=== PATIENT | male | born 1975 | race Two or more races ===

== ENCOUNTER 2017-07-14 16:18 | Emergency (ER) | payer MEDICAID ==
[~2017-07-14] VITALS: Ht 167.6 cm; Wt 77.1 kg
--- NOTE | 2017-07-14 16:30 | NUR ---
BIB FROM HOME DT CHEST TIGHTNESS- PER PT IT STARTED AFTER CRYSTAL METH USE. AT BS FOR EVAL. VSS. NOTED ANXIOUS. SAFETY AND COMFORT MEASURES PROVIDED. WILL MONITOR.
--- NOTE | 2017-07-14 16:50 | NUR ---
PT MEDICATED ORDERED.
[2017-07-14] MEDS ORDERED: LORAZEPAM 1 MG TABLET ONE (16:58)
[2017-07-14] MEDS ORDERED: LORAZEPAM 1 MG TABLET PO ONE (17:00)
--- NOTE | 2017-07-14 17:10 | NUR ---
Patient discharged to waiting room in stable condition. Advised pt not to drive. Offered to call cab but per pt he will cqall ubmya himself. Written and verbal after care instructions given. Patient verbalizes understanding of instruction. All questions answered.
[2017-07-14 17:18] VITALS: BP 140/80
== END 2017-07-14 17:19 | disposition home or self-care (01) ==
LOC: ER 16:21
DX: F41.9 Anxiety disorder, unspecified (principal); F15.10 Other stimulant abuse, uncomplicated; F17.200 Nicotine dependence, unspecified, uncomplicated; Z88.8 Allergy status to other drugs, medicaments and biological substances
CPT/HCPCS: 99284; Z7610

== ENCOUNTER 2019-05-06 13:47 | Emergency (ER) | payer MEDICAID, OTHER ==
[~2019-05-06] VITALS: Ht 167.6 cm; Wt 72.6 kg
--- NOTE | 2019-05-06 13:47 | NUR ---
BIB SELF C/O ANXIETY WORSENING TODAY, PT IS AAOX4, NOT IN RESPIRATORY DISTRESS, NOTED ELEVATED HEART RATE, HOOKED TO INTERACTIVE DESIGNER, KEPT RESTED AND COMFORTABLE, WILL CONTINUE TO MONITOR.
--- NOTE | 2019-05-06 14:10 | NUR ---
SEEN AND EXAMIJNED BY CLAU JAMES
[2019-05-06] MEDS ORDERED: LORAZEPAM INJ 2 MG/ML VIAL ONE ×2 (14:16→16:07)
--- NOTE | 2019-05-06 14:28 | NUR ---
IV LINE ESTABLISHED.
[2019-05-06] MEDS ORDERED: IV NS 0.9% 1,000 ML BAG IV ONE ×2 (14:30→18:00)
[2019-05-06] MEDS ORDERED: LORAZEPAM INJ 2 MG/ML VIAL IV ONE (14:30)
[2019-05-06] MEDS ORDERED: hydrALAZINE HCL IV 20 MG VIAL ONE (15:30)
[2019-05-06] MEDS ORDERED: hydrALAZINE HCL IV 20 MG VIAL IV ONE (15:30)
[2019-05-06] MEDS ORDERED: LORAZEPAM 1 MG TABLET PO ONE (16:30)
--- NOTE | 2019-05-06 16:55 | NUR ---
Akash phillip in [facility] - 05/06/19 at 1743 by ETHAN REPORT GIVEN TO MAGDALENA GARCIA FOR JAVY.
--- NOTE | 2019-05-06 16:55 | NUR ---
REPORT GIVEN TO MAGDALENA GARCIA FOR JAVY.
[2019-05-06] MEDS ORDERED: CEFTRIAXONE 500 MG VIAL ONE (17:48)
[2019-05-06] MEDS ORDERED: AZITHROMYCIN 250 MG TABLET ONE (17:49)
[2019-05-06] MEDS ORDERED: LIDOCAINE /MPF 1% VIAL 5 ML VIAL ONE (17:49)
[2019-05-06] MEDS ORDERED: CEFTRIAXONE 500 MG VIAL IM ONE (18:00)
[2019-05-06] MEDS ORDERED: AZITHROMYCIN 250 MG TABLET PO ONE (18:00)
[2019-05-06 19:06] VITALS: BP 146/98
--- NOTE | 2019-05-06 19:06 | NUR ---
Patient discharged to home in stable condition. Written and verbal after care instructions given. Patient verbalizes understanding of instruction.
--- NOTE | 2019-05-06 19:06 | NUR ---
IV removed. Catheter intact and site benign. Pressure and 4x4 applied to site. No bleeding noted.
== END 2019-05-06 19:09 | disposition home or self-care (01) ==
LOC: ER 13:47
DX: F41.9 Anxiety disorder, unspecified (principal); F15.10 Other stimulant abuse, uncomplicated; Z20.2 Contact with and (suspected) exposure to infections with a predominantly sexual mode of transmission; Z88.8 Allergy status to other drugs, medicaments and biological substances; Z60.2 Problems related to living alone
CPT/HCPCS: 93005; 96372; 96374; 96375; 99284; J0360; J0696; J2060 ×2; J3490; J7030 ×2

== ENCOUNTER 2023-07-21 18:21 | Inpatient (IN) | payer OTHER ==
[~2023-07-21] VITALS: Ht 167.6 cm; Wt 87.5 kg
[2023-07-21] MEDS ORDERED: ONDANSETRON HCL/PF 4 MG/2 ML VIAL IVP ONE (19:00)
[2023-07-21] MEDS ORDERED: MORPHINE SULFATE INJ 2 MG/ML DISP.SYRIN IV ONE (19:00)
[2023-07-21] MEDS ORDERED: PANTOPRAZOLE 40 MG VIAL IV ONE (19:00)
[2023-07-21 19:03] LABS: BASOPHILS # (AUTO) 0.1 K/uL (0.0-0.2); BASOPHILS % (AUTO) 0.7 % (0.0-2.0); EOSINOPHILS # (AUTO) 0.1 K/uL (0.0-0.7); EOSINOPHILS % (AUTO) 1.6 % (0.0-6.0); HEMATOCRIT 43 % (39-51); HEMOGLOBIN 14.8 g/dL (13.5-17.5); LYMPHOCYTES # (AUTO) 1.8 K/uL (0.8-4.8); LYMPHOCYTES % (AUTO) 22.6 % (20.0-44.0); MEAN CORPUSCULAR HEMOGLOBIN 30 PG (26.0-33.0); MEAN CORPUSCULAR HGB CONC 34 g/dl (31.0-36.0); MEAN CORPUSCULAR VOLUME 89 fL (80-96); MONOCYTES # (AUTO) 0.5 K/uL (0.1-1.30); MONOCYTES % (AUTO) 6.6 % (2.0-12.0); NEUTROPHILS # (AUTO) 5.6 K/uL (1.8-8.9); NEUTROPHILS % (AUTO) 68.5 % (43.0-81.0); PLATELET COUNT (AUTO) 243 K/uL (150-450); RED BLOOD CELL COUNT(AUTO) 4.88 MIL/uL (4.5-6.0); RED CELL DISTRIBUTION WIDTH 13.7 % (11.5-15.0); WHITE BLOOD COUNT (AUTO) 8.1 K/uL (4.3-11.0)
[2023-07-21] MEDS ORDERED: PANTOPRAZOLE 40 MG VIAL ONE (19:03)
[2023-07-21 19:11] LABS: CALCIUM, SERUM 9.4 mg/dL (8.5-10.1); CARBON DIOXIDE 27 mmol/L (21-32); CHLORIDE 101 mmol/L (98-107); CREATININE 1.1 mg/dL (0.6-1.3); GLUCOSE 101 mg/dL (74-106); POTASSIUM 3.9 mmol/L (3.5-5.1); SODIUM SERUM 137 mmol/L (136-145); UREA NITROGEN, BLOOD 11 mg/dL (7-18)
[2023-07-21 19:17] LABS: ALBUMIN 3.9 g/dL (3.4-5.0); BILIRUBIN,TOTAL 0.3 mg/dL (0.2-1.0); TOTAL PROTEIN, SERUM 7.5 g/dL (6.4-8.2)
[2023-07-21] MEDS ORDERED: CLOPIDOGREL BISULFATE 75 MG TABLET PO ONE (19:30)
[2023-07-21] MEDS ORDERED: HEPARIN SODIUM, PORCINE 5000 UNITS/1 ML VIAL IV ONE (19:30)
[2023-07-21] MEDS ORDERED: CHOL100043 PO (19:37)
[2023-07-21] MEDS ORDERED: ALPR0.255 PO (19:37)
[2023-07-21] MEDS ORDERED: IBUP-1957 PO (19:37)
[2023-07-21] MEDS ORDERED: LOSA50TA39 PO (19:37)
[2023-07-21] MEDS ORDERED: ACYC-108 PO (19:37)
[2023-07-21] MEDS ORDERED: FLUT16SP16 NAS (19:37)
[2023-07-21] MEDS ORDERED: ASPI-1169 PO (19:37)
[2023-07-21] MEDS ORDERED: CLOPIDOGREL BISULFATE 75 MG TABLET ONE (19:37)
[2023-07-21] MEDS ORDERED: CETI10TA14 PO (19:37)
[2023-07-21] MEDS ORDERED: OMEP40CA21 PO (19:37)
[2023-07-21] MEDS ORDERED: BUPR-96 PO (19:37)
[2023-07-21] MEDS ORDERED: METF-440 PO (19:37)
[2023-07-21] MEDS ORDERED: ENOXAPARIN SODIUM 80 MG/0.8 ML DISP.SYRIN SQ ONE ×2 (19:40→20:00)
[2023-07-21 19:47] LABS: APPEARANCE,URINE CLEAR (CLEAR); BILIRUBIN,URINE NEGATIVE (NEGATIVE); BLOOD, URINE TRACE-INTA Ery/uL (NEGATIVE); COLOR,URINE YELLOW (YELLOW); KETONES,URINE NEGATIVE (NEGATIVE); LEUKOCYTE ESTERASE ,URINE TRACE (NEGATIVE); NITRITE, URINE NEGATIVE (NEGATIVE); PROTEIN,URINE NEGATIVE (NEGATIVE); UGLUCOSE NEGATIVE (NEGATIVE); UROBILINOGEN,URINE 0.2 EU/dL (0.2)
[2023-07-21 19:57] LABS: AMPHETAMINE, URINE NEGATIVE (NEGATIVE); BARBITURATE, URINE NEGATIVE (NEGATIVE); CANNABINOID, URINE NEGATIVE (NEGATIVE); COCCAINE, URINE NEGATIVE (NEGATIVE); OPIATE, URINE NEGATIVE (NEGATIVE); PHENCYCLIDINE SCREEN,URINE NEGATIVE (NEGATIVE)
[2023-07-21 20:16] LABS: RBC,URINE 0-2 /HPF (0-2); WBC,URINE 0-2 /HPF (0-3)
[2023-07-21 20:17] LABS: INR 0.99 (0.91-1.10); PARTIAL THROMBOPLASTIN TIME 29.6 SEC (24.3-34.3); PROTHROMBIN TIME 10.5 SECS (9.2-11.1)
[2023-07-21 20:17] LABS: ADD URINE CULTURE NO; BACTERIA,URINE Rare /HPF (None Seen); SQUAMOUS EPITHELIAL CELL,UR Few /HPF (None Seen)
[2023-07-21] MEDS: ASPIRIN 81 MG TAB.CHEW PO SCH (20:30)
[2023-07-21] MEDS ORDERED: METOPROLOL TARTRATE 25 MG TABLET PO SCH (21:00)
[2023-07-21 21:13] LABS: BENZODIAZEPINE, URINE NEGATIVE (NEGATIVE)
[2023-07-21] MEDS ORDERED: ONDANSETRON HCL/PF 4 MG/2 ML VIAL IVP PRN (23:00)
[2023-07-21] MEDS ORDERED: MAG HYDROX/AL HYDROX/SIMETH 30 ML UDC PO PRN (23:00)
[2023-07-22] VITALS: BP 134/84; TEMP 98.1; O2SAT 96
[2023-07-22] MEDS: MORPHINE SULFATE INJ 2 MG/ML DISP.SYRIN IV PRN ×2 (01:10→22:01)
[2023-07-22 04:00] VITALS: BP 119/82; TEMP 97.9; O2SAT 97
[2023-07-22] MEDS: ACETAMINOPHEN 325 MG TABLET PO PRN (04:55)
[2023-07-22 06:24] LABS: BASOPHILS % (AUTO) 0.4 % (0.0-2.0); EOSINOPHILS # (AUTO) 0.1 K/uL (0.0-0.7); EOSINOPHILS % (AUTO) 1.3 % (0.0-6.0); HEMATOCRIT 43 % (39-51); HEMOGLOBIN 14.6 g/dL (13.5-17.5); LYMPHOCYTES # (AUTO) 2.2 K/uL (0.8-4.8); LYMPHOCYTES % (AUTO) 23.8 % (20.0-44.0); MEAN CORPUSCULAR HEMOGLOBIN 30 PG (26.0-33.0); MEAN CORPUSCULAR HGB CONC 34 g/dl (31.0-36.0); MEAN CORPUSCULAR VOLUME 89 fL (80-96); MONOCYTES # (AUTO) 0.7 K/uL (0.1-1.30); MONOCYTES % (AUTO) 7.7 % (2.0-12.0); NEUTROPHILS # (AUTO) 6.2 K/uL (1.8-8.9); NEUTROPHILS % (AUTO) 66.8 % (43.0-81.0); PLATELET COUNT (AUTO) 234 K/uL (150-450); RED BLOOD CELL COUNT(AUTO) 4.84 MIL/uL (4.5-6.0); RED CELL DISTRIBUTION WIDTH 13.3 % (11.5-15.0); WHITE BLOOD COUNT (AUTO) 9.3 K/uL (4.3-11.0)
[2023-07-22 07:03] LABS: CALCIUM, SERUM 8.9 mg/dL (8.5-10.1); CREATININE 1.1 mg/dL (0.6-1.3); MAGNESIUM 1.8 mg/dL (1.8-2.4); PHOSPHORUS 3.2 mg/dL (2.5-4.9); POTASSIUM 3.8 mmol/L (3.5-5.1)
[2023-07-22 07:30] VITALS: BP 111/76; TEMP 98.8; O2SAT 97
[2023-07-22] MEDS: PANTOPRAZOLE 40 MG TABLET.DR PO SCH (07:52)
[2023-07-22] MEDS: ASPIRIN 81 MG TAB.CHEW PO SCH (09:24)
[2023-07-22] MEDS: METOPROLOL TARTRATE 25 MG TABLET PO SCH ×3 (09:26→17:34)
[2023-07-22] MEDS: ENOXAPARIN SODIUM 80 MG/0.8 ML DISP.SYRIN SQ SCH ×2 (09:27→21:42)
[2023-07-22 16:00] VITALS: BP 105/78; TEMP 99.1; O2SAT 99
[2023-07-22 20:00] VITALS: BP 106/73; TEMP 99.3; O2SAT 95
[2023-07-22] MEDS: ATORVASTATIN 10 MG TABLET PO SCH (21:32)
[2023-07-23] VITALS: BP_SYST 100; BP_SYST 99; BP_DIAS 71; BP_DIAS 72; TEMP 98.9; TEMP 99; O2SAT 97
[2023-07-23] MEDS: METOPROLOL TARTRATE 25 MG TABLET PO SCH ×4 (05:13→17:17)
[2023-07-23 05:58] LABS: BASOPHILS % (AUTO) 0.3 % (0.0-2.0); EOSINOPHILS # (AUTO) 0.1 K/uL (0.0-0.7); EOSINOPHILS % (AUTO) 1.3 % (0.0-6.0); HEMATOCRIT 42 % (39-51); HEMOGLOBIN 14.5 g/dL (13.5-17.5); LYMPHOCYTES # (AUTO) 2.5 K/uL (0.8-4.8); LYMPHOCYTES % (AUTO) 29.6 % (20.0-44.0); MEAN CORPUSCULAR HEMOGLOBIN 30 PG (26.0-33.0); MEAN CORPUSCULAR HGB CONC 34 g/dl (31.0-36.0); MEAN CORPUSCULAR VOLUME 89 fL (80-96); MONOCYTES # (AUTO) 0.8 K/uL (0.1-1.30); MONOCYTES % (AUTO) 9.2 % (2.0-12.0); NEUTROPHILS # (AUTO) 5.1 K/uL (1.8-8.9); NEUTROPHILS % (AUTO) 59.6 % (43.0-81.0); PLATELET COUNT (AUTO) 230 K/uL (150-450); RED BLOOD CELL COUNT(AUTO) 4.78 MIL/uL (4.5-6.0); RED CELL DISTRIBUTION WIDTH 13.5 % (11.5-15.0); WHITE BLOOD COUNT (AUTO) 8.5 K/uL (4.3-11.0)
[2023-07-23 06:13] LABS: ALBUMIN 3.4 g/dL (3.4-5.0); BILIRUBIN,TOTAL 0.6 mg/dL (0.2-1.0); CALCIUM, SERUM 8.8 mg/dL (8.5-10.1); CREATININE 1.1 mg/dL (0.6-1.3); MAGNESIUM 1.9 mg/dL (1.8-2.4); PHOSPHORUS 3.1 mg/dL (2.5-4.9); TOTAL PROTEIN, SERUM 7.2 g/dL (6.4-8.2)
[2023-07-23 07:30] VITALS: BP 107/77; TEMP 98.6; O2SAT 97
[2023-07-23] MEDS: PANTOPRAZOLE 40 MG TABLET.DR PO SCH (08:16)
[2023-07-23] MEDS: ASPIRIN 81 MG TAB.CHEW PO SCH (08:16)
[2023-07-23] MEDS: ENOXAPARIN SODIUM 80 MG/0.8 ML DISP.SYRIN SQ SCH ×2 (08:16→21:44)
[2023-07-23 20:00] VITALS: BP 116/94; TEMP 97.5; O2SAT 97
[2023-07-23] MEDS: ATORVASTATIN 10 MG TABLET PO SCH (21:43)
[2023-07-23] MEDS ORDERED: ALPRAZOLAM 0.25 MG TABLET PO ONE (22:00)
[2023-07-24] VITALS (9 sets, daily range): BP systolic 96–125; BP diastolic 70–87; TEMP 97.6–98.2; O2SAT 95–100
[2023-07-24] MEDS: METOPROLOL TARTRATE 25 MG TABLET PO SCH ×5 (05:17→23:27)
[2023-07-24] MEDS: ACETAMINOPHEN 325 MG TABLET PO PRN (05:25)
[2023-07-24 05:47] LABS: BASOPHILS # (AUTO) 0.1 K/uL (0.0-0.2); BASOPHILS % (AUTO) 0.7 % (0.0-2.0); EOSINOPHILS # (AUTO) 0.1 K/uL (0.0-0.7); EOSINOPHILS % (AUTO) 1.1 % (0.0-6.0); HEMATOCRIT 43 % (39-51); HEMOGLOBIN 14.7 g/dL (13.5-17.5); LYMPHOCYTES % (AUTO) 26.3 % (20.0-44.0); MEAN CORPUSCULAR HEMOGLOBIN 31 PG (26.0-33.0); MEAN CORPUSCULAR HGB CONC 35 g/dl (31.0-36.0); MEAN CORPUSCULAR VOLUME 88 fL (80-96); MONOCYTES # (AUTO) 0.6 K/uL (0.1-1.30); MONOCYTES % (AUTO) 8.3 % (2.0-12.0); NEUTROPHILS # (AUTO) 4.9 K/uL (1.8-8.9); NEUTROPHILS % (AUTO) 63.6 % (43.0-81.0); PLATELET COUNT (AUTO) 239 K/uL (150-450); RED BLOOD CELL COUNT(AUTO) 4.81 MIL/uL (4.5-6.0); RED CELL DISTRIBUTION WIDTH 13.7 % (11.5-15.0); WHITE BLOOD COUNT (AUTO) 7.7 K/uL (4.3-11.0)
[2023-07-24 05:58] LABS: CALCIUM, SERUM 9.2 mg/dL (8.5-10.1); CREATININE 1.1 mg/dL (0.6-1.3); MAGNESIUM 2.1 mg/dL (1.8-2.4); PHOSPHORUS 2.9 mg/dL (2.5-4.9); POTASSIUM 3.9 mmol/L (3.5-5.1)
[2023-07-24] MEDS: PANTOPRAZOLE 40 MG TABLET.DR PO SCH (08:27)
[2023-07-24] MEDS: ASPIRIN 81 MG TAB.CHEW PO SCH (08:27)
[2023-07-24] MEDS: ENOXAPARIN SODIUM 80 MG/0.8 ML DISP.SYRIN SQ SCH (08:28)
[2023-07-24] MEDS ORDERED: LIDOCAINE HCL/MPF 1% 30 ML VIAL IJ ONE (13:02)
[2023-07-24] MEDS ORDERED: IV NS 0.9% 1,000 ML ONE (13:02)
[2023-07-24] MEDS ORDERED: IODIXANOL 150 ML IV ONE ×2 (13:02→14:48)
[2023-07-24] MEDS ORDERED: NITROGLYCERIN IN 5 % DEXTROSE 250 ML IV ONE (13:02)
[2023-07-24] MEDS ORDERED: IV SET PRIMARY PUMP SET 1 EA INFUS.SET MC ONE (13:02)
[2023-07-24] MEDS ORDERED: MIDAZOLAM HCL 2 MG/2ML VIAL ONE (14:10)
[2023-07-24] MEDS ORDERED: FENTANYL PF 100MCG/2ML AMPUL ONE (14:10)
[2023-07-24] MEDS ORDERED: HEPARIN SODIUM, PORCINE 5000 UNITS/1 ML VIAL ONE (14:31)
[2023-07-24] MEDS ORDERED: IODIXANOL 320MG/ML 50 ML IV ONE (14:31)
[2023-07-24] MEDS ORDERED: HEPARIN SODIUM, PORCINE 1,000 UNIT/ML VIAL ONE (14:32)
[2023-07-24] MEDS ORDERED: TICAGRELOR 90 MG TABLET PO ONE (14:50)
[2023-07-24] MEDS: TICAGRELOR 90 MG TABLET PO SCH (17:00)
[2023-07-24] MEDS ORDERED: IV NS 0.9% 500 ML BAG IV ONE (17:00)
[2023-07-24] MEDS: ATORVASTATIN 10 MG TABLET PO SCH (22:03)
[2023-07-24] MEDS ORDERED: ALPRAZOLAM 0.25 MG TABLET PO ONE (23:00)
[2023-07-25] VITALS: BP 117/81; TEMP 97.3; O2SAT 96
[2023-07-25 04:00] VITALS: BP 105/77; TEMP 97.5; O2SAT 97
[2023-07-25 05:57] LABS: BASOPHILS % (AUTO) 0.3 % (0.0-2.0); EOSINOPHILS # (AUTO) 0.1 K/uL (0.0-0.7); EOSINOPHILS % (AUTO) 0.7 % (0.0-6.0); HEMATOCRIT 42 % (39-51); HEMOGLOBIN 14.3 g/dL (13.5-17.5); LYMPHOCYTES # (AUTO) 1.6 K/uL (0.8-4.8); LYMPHOCYTES % (AUTO) 18.8 % (20.0-44.0); MEAN CORPUSCULAR HEMOGLOBIN 30 PG (26.0-33.0); MEAN CORPUSCULAR HGB CONC 34 g/dl (31.0-36.0); MEAN CORPUSCULAR VOLUME 88 fL (80-96); MONOCYTES # (AUTO) 0.7 K/uL (0.1-1.30); MONOCYTES % (AUTO) 8.6 % (2.0-12.0); NEUTROPHILS # (AUTO) 6.1 K/uL (1.8-8.9); NEUTROPHILS % (AUTO) 71.6 % (43.0-81.0); PLATELET COUNT (AUTO) 226 K/uL (150-450); RED BLOOD CELL COUNT(AUTO) 4.72 MIL/uL (4.5-6.0); RED CELL DISTRIBUTION WIDTH 13.7 % (11.5-15.0); WHITE BLOOD COUNT (AUTO) 8.5 K/uL (4.3-11.0)
[2023-07-25 06:14] LABS: CALCIUM, SERUM 8.6 mg/dL (8.5-10.1); CREATININE 1.2 mg/dL (0.6-1.3); MAGNESIUM 1.9 mg/dL (1.8-2.4); PHOSPHORUS 3.1 mg/dL (2.5-4.9); POTASSIUM 3.8 mmol/L (3.5-5.1)
[2023-07-25] MEDS: METOPROLOL TARTRATE 25 MG TABLET PO SCH ×2 (06:25→12:42)
[2023-07-25] MEDS: PANTOPRAZOLE 40 MG TABLET.DR PO SCH (07:36)
[2023-07-25 08:00] VITALS: BP 115/88; TEMP 97.7; O2SAT 96
[2023-07-25] MEDS: ASPIRIN 81 MG TAB.CHEW PO SCH (10:10)
[2023-07-25] MEDS: TICAGRELOR 90 MG TABLET PO SCH (10:10)
[2023-07-25] MEDS ORDERED: METO25TA20 PO (14:57)
[2023-07-25] MEDS ORDERED: ATOR10TA PO (14:57)
[2023-07-25] MEDS ORDERED: CLOP75TA15 PO (14:57)
[2023-07-25 16:00] VITALS: BP 116/80; TEMP 98.3; O2SAT 98
== END 2023-07-25 16:00 | disposition home or self-care (01) | DRG 174 ==
LOC: ER 18:21 → TELE 20:42 → ICU 07-24 16:01 → MED 07-24 22:11
PROVIDERS: ADMIT Nurse Practitioner Acute Care; ATTEND Student in an Organized Health Care Education/Training Program
PROC: 4A023N7 Measurement of Cardiac Sampling and Pressure, Left Heart, Percutaneous Approach (ICD-10-PCS; principal; 2023-07-24)
PROC: 027034Z Dilation of Coronary Artery, One Artery with Drug-eluting Intraluminal Device, Percutaneous Approach (ICD-10-PCS; 2023-07-24)
PROC: B211YZZ Fluoroscopy of Multiple Coronary Arteries using Other Contrast (ICD-10-PCS; 2023-07-24)
DX: I21.4 Non-ST elevation (NSTEMI) myocardial infarction (principal); D68.69 Other thrombophilia; K21.9 Gastro-esophageal reflux disease without esophagitis; E66.01 Morbid (severe) obesity due to excess calories; I10 Essential (primary) hypertension; E78.5 Hyperlipidemia, unspecified; F41.9 Anxiety disorder, unspecified; I25.10 Atherosclerotic heart disease of native coronary artery without angina pectoris; Z79.82 Long term (current) use of aspirin; Z79.84 Long term (current) use of oral hypoglycemic drugs; Z68.31 Body mass index [BMI] 31.0-31.9, adult; K57.30 Diverticulosis of large intestine without perforation or abscess without bleeding; Z85.79 Personal history of other malignant neoplasms of lymphoid, hematopoietic and related tissues
CPT/HCPCS: 36415; 71045-TC; 75574; 80048-TC; 80053-TC; 80061-TC; 80076-TC; 81001; 83690-TC; 83735-TC; 84100-TC; 84484-TC; 85025-TC; 85347; 85730-TC; 93307-TC; A4223; C9113; G0378; J1644; J1650; J2250; J2270; J3010; J3490; J7030; J7040; Q9967